=== PATIENT | female | born 1990 | race Caucasian/White ===

== ENCOUNTER 2019-03-14 14:56 | Emergency (ER) | payer MEDICAID, SELFPAY ==
[2019-03-14 14:56] VITALS: BP 145/92; PULSE 105; RESP 20; TEMP 36.5; O2SAT 98; BMI 29.5
--- NOTE | 2019-03-14 15:05 | RAD_ITS ---
STUDY: X-RAY - LEFT HAND, ATTENTION THIRD FINGER REASON FOR EXAM: Female, 29 years old. DOG BITE, MIDDLE FINGER TECHNIQUE: 3 view(s) of the finger were obtained. COMPARISON: None. FINDINGS: Normal metacarpal head. Normal metacarpophalangeal joint. Normal proximal phalanx. Normal middle phalanx. Normal distal phalanx. Normal proximal interphalangeal joint. Normal distal interphalangeal joint. There is soft tissue swelling about the third digit. RAD/Finger(s) Min 2 Views IMPRESSION: No fracture or malalignment. Third digit soft tissue swelling. No radiopaque foreign body. Electronically Signed: Cem Raza MD at 15:34 EDT , Service support ,
[2019-03-14] MEDS: Diphth,Pertuss(Acell),Tet Vac 0.5 ML Vial IM (15:11)
[2019-03-14] MEDS: Bupivacaine Mpf 0.5% 30 ML VIAL INFILT (15:12)
[2019-03-14] MEDS: morphine 8 MG/ML Syringe IM (15:12)
--- NOTE | 2019-03-14 16:17 | ED.DCSUM_ITS ---
- ER Visit Summary Date of Service: 03/14/19 Chief Complaint: Dog bite left History of Present Illness: The patient is a 29 F will complement improved she is right-hand dominant. She reports that she was her dog and was bit on her left middle finger. She complains of a sharp pain that is 10 out of 10 severity. Is worsened by movement and relieved by rest. She does complain of paresthesias distally. She is unsure when her last tetanus shot was. Physical Examination: Vitals: Stable. Afebrile. General: Well-nourished and well-developed. Head: Normocephalic atraumatic. Neck: Supple, no lymphadenopathy. No JVD. Nontender. Cardiovascular: Regular rate and rhythm. No murmurs. Respiratory: No respiratory distress. Clear to auscultation bilaterally. Abdominal: Soft, nontender, nondistended, normal bowel sounds. No guarding, rebound, or peritoneal signs. Back: Nontender. Extremities: 2 cm laceration to the anterior surface of the middle phalanx of her left middle finger. She reports a decreased sensation to light touch and has abnormal two-point discrimination distally. Skin: Normal color, no rash. Neurologic: Alert and oriented ?3. Cranial nerves II through XII are intact. Normal strength and sensation. Psych: Normal affect. Test Results: X-rays negative. Emergency Department Course and Treatment: Patient had her wound anesthetized and repaired. She tolerated this well. She is penicillin allergic and was treated with doxycycline p.o. Treatment Plan: Patient was discussed with Dr. Sorensen and given the paresthesias she asked that the patient be referred to a hand surgeon. She was discussed with Dr. Ila day who will see her in the office in 4 days for a repeat exam. Patient will be discharged with [place] and doxycycline. Return to the emergency department for any worsening symptoms. Disposition: To home in improved and stable condition. Impression: 1. Dog bite left middle finger. 2. Decreased sensation left middle fingertip. 3. Laceration left middle finger, 2 cm, repaired. Procedure note: Wound was cleansed with chlorhexidine soap. Anesthetized with 5 cc of bupivacaine used as a digital block. Copiously irrigated with normal saline. Wound was explored there is no foreign material present. It was closed with 4 simple interrupted 4-0 ethilon sutures. The patient tolerated it well. This note was generated with [employer] dictation software. It may contain incorrect words, spelling, and punctuation that were not noted in review of the chart prior to signing ED Disposition - Plan for ED Patient: Disposition: Home or Assisted Living Instructions: Dog Bite Prescriptions: Doxycycline 100 mg PO BID #20 cap Prescription Printed Hydrocodone Bitart/Apap 5-325 [[place] 5MG-325MG] 1 tab PO Q6H PRN PRN 3 Days #10 tab PRN Reason: Pain Prescription Printed Additional Instructions: Follow up with Dr. Gray in 4 days for a wound check. His number is .
[2019-03-14] MEDS: Doxycycline 100 MG CAPSULE PO (16:36)
== END 2019-03-14 16:53 | disposition home or self-care (01) ==
PROVIDERS: Emergency Provider Emergency Medicine
DX: S61.213A Laceration without foreign body of left middle finger without damage to nail, initial encounter (principal); R20.8 Other disturbances of skin sensation; Z72.0 Tobacco use; W54.0XXA Bitten by dog, initial encounter; Y93.89 Activity, other specified; Y92.009 Unspecified place in unspecified non-institutional (private) residence as the place of occurrence of the external cause; Y99.8 Other external cause status
CPT/HCPCS: 12001; 73140; 90471; 90715; 96372; 99284

== ENCOUNTER 2021-03-22 17:35 | Outpatient (CLI) | payer MEDICAID, SELFPAY ==
[2021-03-22 17:50] VITALS: BMI 38.7
[2021-03-22 17:52] VITALS: BP 123/82; PULSE 79
[2021-03-22 17:54] VITALS: BP 123/82; PULSE 80; TEMP 36.3; O2SAT 100
--- NOTE | 2021-03-22 18:21 | US_ITS ---
HISTORY: growth EXAMINATION: US OB Limited 1 Or More Fetus TECHNIQUE: Transabdominal pelvic ultrasound was performed. Grayscale, spectral waveform, and color flow Doppler evaluation of the adnexa. COMPARISON: None LMP: 08/02/20. Beta-hCG: Unknown. Provided EGA: 33 weeks 1 day. FINDINGS: INTRAUTERINE GESTATION(s): Single. ESTIMATED GESTATIONAL AGE: 31 weeks 4 days. ESTIMATED DUE DATE (MACIE): May 20, 2021. HEART MOTION is 155 bpm. AMNIOTIC FLUID INDEX (GARY): 10.25 cm. ESTIMATED WEIGHT: 1865 g or 4 lbs. 2 oz.. BIOPHYSICAL PROFILE (BPP): not assessed. PRESENTATION: cephalic. PLACENTA: anterior. There is no placenta previa or abruption. CERVIX: The cervix is closed. FREE FLUID: None. US/OB Limited With Biometrics IMPRESSION: Single live intrauterine of 31 weeks 4 days. No acute abnormality. at 0020 Reported and signed by: Tarik Kim MD Electronically Signed: Tarik Kim MD at 0:18 EDT Tel , Service support ,
[2021-03-22 18:48] LABS: Mucous, Urine 0 SEEN /hpf (<or=2+); Red Blood Cells-Urine 0 SEEN /hpf (0-5)
[2021-03-22 18:54] LABS: Absolute Lymphocyte Count 1.93 X10^3/uL (0.83-4.51); Absolute Neutrophil Count 10.2 X10^3/uL (2.0-7.7); Basophil# 0.04 X10^3/uL; Basophil% 0.3 % (0-1); Eosinophil# 0.11 X10^3/uL; Eosinophils% 0.8 % (0-5); Hematocrit 32.5 % (37-47); Hemoglobin 9.9 g/dL (12.0-15.0); Lymphocyte # 1.93 X10^3/ul (0.83-4.51); Lymphocyte % 14.9 % (19-41); Mean Corp Hgb Conc 30.5 g/dL (32-36); Mean Corpuscular Hgb 26.8 pg (27.0-32.0); Mean Corpuscular Volume 87.8 fL (81-99); Mean Platelet Vol. 10.2 fl (6.2-12.0); Monocyte% 4.6 % (0-10); NRBC Flagged by Analyzer 0 % (0-5); Neutrophil # 10.15 X10^3/uL (2.7-7.7); Neutrophil % 78.3 % (47-70); Platelet Count 427 K/mm3 (150-450); RBC Distribution Width CV 13.2 % (11.6-14.6); RBC Distribution Width SD 42.1 fl (35.1-43.9)
[2021-03-22 18:55] LABS: Color, Urine Yellow (Yellow); Glucose, Dipstick Normal (Normal); Ketone-Dipstick Negative (Negative); Leukocyte Esterase-Dipstick Negative /ul (Negative); Nitrite-Dipstick Negative (Negative); Occult Blood-Urine Negative /ul (Negative); Protein-Dipstick Negative (Negative); Urine Bilirubin Dipstick Negative (Negative); Urine Clarity Clear (Clear); Urine Urobilinogen Normal (Normal)
[2021-03-22 19:09] LABS: ALB/GLOB Ratio 0.5 RATIO (0.9-2.4); AST(SGOT) 20 U/L (15-37); Alanine Aminotransfer ALT/SGPT 22 U/L (13-56); Albumin, Serum 2.3 g/dL (3.2-5.0); Alkaline Phosphatase 156 U/L (45-117); Anion Gap 6 (5-15); BUN 5 mg/dL (7-18); BUN/Creat Ratio 10.4 RATIO (10-20); Calcium,Total 8.4 mg/dL (8.5-10.1); Chloride 107 mmol/L (98-107); Creatinine, Serum 0.48 mg/dL (0.55-1.02); EST Glomerular Filtration Rate 159 mL/min (>60); Est Glom Filt Rate - Afr Amer 192 mL/min (>60); Estimated Creatinine Clearance 126.97 ml/min; Globulin 4.7 g/dL (2.2-4.2); Glucose 86 mg/dL (74-106); Potassium 3.5 mmol/L (3.5-5.1); Sodium Level 139 mmol/L (136-145)
[2021-03-22 19:14] LABS: Bacteria RARE /hpf (None Seen); Squamous Epithelial Cells - UA 0-5 SEEN /hpf (5-10); White Blood Cells 0-5 SEEN /hpf (0-5)
[2021-03-22 19:20] LABS: Amphetamine Urine VISTA POSITIVE (<1000 ng/mL); Barbiturate Urine VISTA NEGATIVE (< 200 ng/mL); Benzodiazepine Urine VISTA NEGATIVE (< 200 ng/mL); Cocaine Urine VISTA NEGATIVE (< 300 ng/mL); Ecstacy Urine VISTA NEGATIVE (< 500 ng/mL); Methadone Urine VISTA NEGATIVE (< 300 ng/mL); PCP Urine VISTA NEGATIVE (< 25 ng/mL); THC Urine VISTA POSITIVE (< 50 ng/mL); Vista UDS pH Range 7
[2021-03-22 19:46] VITALS: TEMP 35.8
[2021-03-22 19:47] VITALS: BP 133/89; PULSE 82
[2021-03-22 20:19] LABS: HIV - WCH Non-Reactive (Nonreactive); Hepatitis B Surface Antigen Non-Reactive (Nonreactive); Hepatitis C Antibody Non-Reactive (Nonreactive)
[2021-03-22] MEDS: Mag Hydrox/Al Hydrox/Simeth 30 ML UDC PO (20:26)
[2021-03-22] MEDS: Famotidine 20 MG Tablet PO (21:02)
[2021-03-22 21:21] LABS: Chlamydia Trachomatis by PCR Negative (Negative); Neisserai gonorrhoeae by PCR Negative (Negative); Probe Check PASS; Sample Adequacy Control PASS; Specimen Processing Control PASS
[2021-03-23 08:26] LABS: Rubella IgG Equiv (Nonreactive); Syphilis Antibodies Non-reactive
--- NOTE | 2021-03-23 10:55 | OB.TRI.PN ---
Progress Notes Date of Service: 03/22/21 Progress Note: Patient presents for triage evaluation secondary to epigastric pain. Patient has not had any care. Is 33 weeks by LMP. Dating/growth US ordered. NOB labs and UDS ordered. Cervix closed. Given mylanta with significant relief in pain. Discharged to home in stable condition. FHT: Moderate variability reactive no decelerations category I tracing [place]: No Contractions Assessment and plan: Reactive NST, reassuring maternal and status patient discharged to home to establish care with OB care provider. See problem list details for additional plan information. Laboratory Studies: Laboratory Tests 03/22/21 03/22/21 03/22/21 Range/Units 18:35 18:35 18:35 WBC (4.4-11.0) K/mm3 RBC (4.2-5.4) M/mm3 Hgb (12.0-15.0) g/dL Hct (37-47) % MCV (81-99) fL MCH (27.0-32.0) pg MCHC (32-36) g/dL RDW Std Deviation (35.1-43.9) fl RDW Coeff of Mendoza (11.6-14.6) % Plt Count (150-450) K/mm3 MPV (6.2-12.0) fl Immature Gran % (Auto) (0.0-0.9) % Neut % (Auto) (47-70) % Lymph % (Auto) (19-41) % [place] % (Auto) (0-10) % Eos % (Auto) (0-5) % Baso % (Auto) (0-1) % Absolute Neuts (auto) (2.0-7.7) X10^3/uL Absolute Lymphs (auto) (0.83-4.51) X10^3/uL Nucleated RBC % (0-5) % Sodium 139 (136-145) mmol/L Potassium 3.5 (3.5-5.1) mmol/L Chloride 107 (98-107) mmol/L Carbon Dioxide 26.0 (21.0-32.0) mmol/L Anion Gap 6 (5-15) BUN 5 L (7-18) mg/dL Creatinine 0.48 L (0.55-1.02) mg/dL Estim Creat Clear Calc 126.97 ml/min Est GFR (MDRD) Af Amer 192 (>60) mL/min Est GFR (MDRD) Non-Af 159 (>60) mL/min BUN/Creatinine Ratio 10.4 (10-20) RATIO Glucose 86 (74-106) mg/dL Calcium 8.4 L (8.5-10.1) mg/dL Total Bilirubin 0.20 (0.20-1.00) mg/dL AST 20 (15-37) U/L ALT 22 (13-56) U/L Alkaline Phosphatase 156 H (45-117) U/L Total Protein 7.0 (6.4-8.2) g/dL Albumin 2.3 L (3.2-5.0) g/dL Globulin 4.7 H (2.2-4.2) g/dL Albumin/Globulin Ratio 0.5 L (0.9-2.4) RATIO Urine Color (Yellow) Urine Clarity (Clear) Urine pH (5.0 - 8.0) Ur Specific [place] (1.002-1.030) Urine Protein (Negative) mg/dl Urine Glucose (UA) (Normal) mg/dl Urine Ketones (Negative) mg/dl Urine Occult Blood (Negative) /ul Urine Nitrite (Negative) Urine Bilirubin (Negative) mg/dL Urine Urobilinogen (Normal) mg/dl Ur Leukocyte Esterase (Negative) /ul Urine RBC (0-5) /hpf Urine WBC (0-5) /hpf Ur Squamous Epith Cells (5-10) /hpf Urine Bacteria (None Seen) /hpf Urine Mucus (<or=2+) /hpf Urine Opiates Screen (< 300 ng/mL) Urine Methadone Screen (< 300 ng/mL) Ur Barbiturates Screen (< 200 ng/mL) Ur Phencyclidine Scrn (< 25 ng/mL) Ur Amphetamines Screen (<1000 ng/mL) U Methamphetamin-MDMA (< 500 ng/mL) U Benzodiazepines Scrn (< 200 ng/mL) Urine Cocaine Screen (< 300 ng/mL) U Cannabinoids Screen (< 50 ng/mL) Ur Drug Screen Comment Syphilis Total Ab Chlam trachomat DNA PCR Negative (Negative) Hep Bs Antigen (Nonreactive) Hepatitis C Antibody (Nonreactive) HIV 1&2 Antibody (Nonreactive) N.gonorrhoeae DNA (PCR) Negative (Negative) Rubella IgG Antibody (Nonreactive) Blood Type Antibody Screen Screen Cancelled Baby's Blood Type Cancelled Baby's BRITTANY Cancelled 03/22/21 03/22/21 03/22/21 Range/Units 18:35 18:35 18:35 WBC (4.4-11.0) K/mm3 RBC (4.2-5.4) M/mm3 Hgb (12.0-15.0) g/dL Hct (37-47) % MCV (81-99) fL MCH (27.0-32.0) pg MCHC (32-36) g/dL RDW Std Deviation (35.1-43.9) fl RDW Coeff of Mendoza (11.6-14.6) % Plt Count (150-450) K/mm3 MPV (6.2-12.0) fl Immature Gran % (Auto) (0.0-0.9) % Neut % (Auto) (47-70) % Lymph % (Auto) (19-41) % [place] % (Auto) (0-10) % Eos % (Auto) (0-5) % Baso % (Auto) (0-1) % Absolute Neuts (auto) (2.0-7.7) X10^3/uL Absolute Lymphs (auto) (0.83-4.51) X10^3/uL Nucleated RBC % (0-5) % Sodium (136-145) mmol/L Potassium (3.5-5.1) mmol/L Chloride (98-107) mmol/L Carbon Dioxide (21.0-32.0) mmol/L Anion Gap (5-15) BUN (7-18) mg/dL Creatinine (0.55-1.02) mg/dL Estim Creat Clear Calc ml/min Est GFR (MDRD) Af Amer (>60) mL/min Est GFR (MDRD) Non-Af (>60) mL/min BUN/Creatinine Ratio (10-20) RATIO Glucose (74-106) mg/dL Calcium (8.5-10.1) mg/dL Total Bilirubin (0.20-1.00) mg/dL AST (15-37) U/L ALT (13-56) U/L Alkaline Phosphatase (45-117) U/L Total Protein (6.4-8.2) g/dL Albumin (3.2-5.0) g/dL Globulin (2.2-4.2) g/dL Albumin/Globulin Ratio (0.9-2.4) RATIO Urine Color (Yellow) Urine Clarity (Clear) Urine pH (5.0 - 8.0) Ur Specific [place] (1.002-1.030) Urine Protein (Negative) mg/dl Urine Glucose (UA) (Normal) mg/dl Urine Ketones (Negative) mg/dl Urine Occult Blood (Negative) /ul Urine Nitrite (Negative) Urine Bilirubin (Negative) mg/dL Urine Urobilinogen (Normal) mg/dl Ur Leukocyte Esterase (Negative) /ul Urine RBC (0-5) /hpf Urine WBC (0-5) /hpf Ur Squamous Epith Cells (5-10) /hpf Urine Bacteria (None Seen) /hpf Urine Mucus (<or=2+) /hpf Urine Opiates Screen NEGATIVE (< 300 ng/mL) Urine Methadone Screen NEGATIVE (< 300 ng/mL) Ur Barbiturates Screen NEGATIVE (< 200 ng/mL) Ur Phencyclidine Scrn NEGATIVE (< 25 ng/mL) Ur Amphetamines Screen POSITIVE H (<1000 ng/mL) U Methamphetamin-MDMA NEGATIVE (< 500 ng/mL) U Benzodiazepines Scrn NEGATIVE (< 200 ng/mL) Urine Cocaine Screen NEGATIVE (< 300 ng/mL) U Cannabinoids Screen POSITIVE H (< 50 ng/mL) Ur Drug Screen Comment Syphilis Total Ab Non-reactive Chlam trachomat DNA PCR (Negative) Hep Bs Antigen Non-Reactive (Nonreactive) Hepatitis C Antibody Non-Reactive (Nonreactive) HIV 1&2 Antibody Non-Reactive (Nonreactive) N.gonorrhoeae DNA (PCR) (Negative) Rubella IgG Antibody Equiv (Nonreactive) Blood Type Antibody Screen Screen Baby's Blood Type Baby's BRITTANY 03/22/21 03/22/21 03/22/21 Range/Units 18:35 18:35 18:35 WBC 13.0 H (4.4-11.0) K/mm3 RBC 3.70 L (4.2-5.4) M/mm3 Hgb 9.9 L (12.0-15.0) g/dL Hct 32.5 L (37-47) % MCV 87.8 (81-99) fL MCH 26.8 L (27.0-32.0) pg MCHC 30.5 L (32-36) g/dL RDW Std Deviation 42.1 (35.1-43.9) fl RDW Coeff of [place] 13.2 (11.6-14.6) % Plt Count 427 (150-450) K/mm3 MPV 10.2 (6.2-12.0) fl Immature Gran % (Auto) 1.100 H (0.0-0.9) % Neut % (Auto) 78.3 H (47-70) % Lymph % (Auto) 14.9 L (19-41) % [place] % (Auto) 4.6 (0-10) % Eos % (Auto) 0.8 (0-5) % Baso % (Auto) 0.3 (0-1) % Absolute Neuts (auto) 10.2 H (2.0-7.7) X10^3/uL Absolute Lymphs (auto) 1.93 (0.83-4.51) X10^3/uL Nucleated RBC % 0 (0-5) % Sodium (136-145) mmol/L Potassium (3.5-5.1) mmol/L Chloride (98-107) mmol/L Carbon Dioxide (21.0-32.0) mmol/L Anion Gap (5-15) BUN (7-18) mg/dL Creatinine (0.55-1.02) mg/dL Estim Creat Clear Calc ml/min Est GFR (MDRD) Af Amer (>60) mL/min Est GFR (MDRD) Non-Af (>60) mL/min BUN/Creatinine Ratio (10-20) RATIO Glucose (74-106) mg/dL Calcium (8.5-10.1) mg/dL Total Bilirubin (0.20-1.00) mg/dL AST (15-37) U/L ALT (13-56) U/L Alkaline Phosphatase (45-117) U/L Total Protein (6.4-8.2) g/dL Albumin (3.2-5.0) g/dL Globulin (2.2-4.2) g/dL Albumin/Globulin Ratio (0.9-2.4) RATIO Urine Color Yellow (Yellow) Urine Clarity Clear (Clear) Urine pH 7.0 (5.0 - 8.0) Ur Specific [place] 1.010 (1.002-1.030) Urine Protein Negative (Negative) mg/dl Urine Glucose (UA) Normal (Normal) mg/dl Urine Ketones Negative (Negative) mg/dl Urine Occult Blood Negative (Negative) /ul Urine Nitrite Negative (Negative) Urine Bilirubin Negative (Negative) mg/dL Urine Urobilinogen Normal (Normal) mg/dl Ur Leukocyte Esterase Negative (Negative) /ul Urine RBC 0 SEEN (0-5) /hpf Urine WBC 0-5 SEEN (0-5) /hpf Ur Squamous Epith Cells 0-5 SEEN (5-10) /hpf Urine Bacteria RARE (None Seen) /hpf Urine Mucus 0 SEEN (<or=2+) /hpf Urine Opiates Screen (< 300 ng/mL) Urine Methadone Screen (< 300 ng/mL) Ur Barbiturates Screen (< 200 ng/mL) Ur Phencyclidine Scrn (< 25 ng/mL) Ur Amphetamines Screen (<1000 ng/mL) U Methamphetamin-MDMA (< 500 ng/mL) U Benzodiazepines Scrn (< 200 ng/mL) Urine Cocaine Screen (< 300 ng/mL) U Cannabinoids Screen (< 50 ng/mL) Ur Drug Screen Comment Syphilis Total Ab Chlam trachomat DNA PCR (Negative) Hep Bs Antigen (Nonreactive) Hepatitis C Antibody (Nonreactive) HIV 1&2 Antibody (Nonreactive) N.gonorrhoeae DNA (PCR) (Negative) Rubella IgG Antibody (Nonreactive) Blood Type O NEGATIVE Antibody Screen NEGATIVE Screen Baby's Blood Type Baby's BRITTANY Charges/Coding Procedures Urinary/Genital [id number]: [id number] non-stress test Interp
[2021-03-28 04:07] LABS: Amphetamine Positive (.); AmphetamineGC/MS Conf 712 ng/mL (Cutoff=500); Methamphetamines Positive (.)
[2021-03-28 09:58] LABS: Amphetamine Ur Confirm Positive (.)
== END 2021-03-22 21:23 | disposition home or self-care (01) ==
LOC: WPOUT 17:41 → WP 17:42
PROVIDERS: Referring Provider Obstetrics & Gynecology; Visit Provider Obstetrics & Gynecology
DX: O26.893 Other specified pregnancy related conditions, third trimester (principal); R10.13 Epigastric pain; O09.33 Supervision of pregnancy with insufficient antenatal care, third trimester; Z3A.33 33 weeks gestation of pregnancy
CPT/HCPCS: 36415; 59025; 59050; 76816; 80053; 80307; 81001; 85025; 86703; 86762; 86780; 86803; 86850; 86900; 86901; 87340; 87491; 87591; 90384; 96372; 99218; G0378; J2790

== ENCOUNTER 2021-11-16 10:03 | Emergency (ER) | payer MEDICAID, SELFPAY ==
[2021-11-16 10:03] VITALS: BP 121/93; PULSE 114; RESP 17; TEMP 35.9; O2SAT 99; BMI 34.1
--- NOTE | 2021-11-16 10:50 | EDS_ITS ---
HPI <Dr. Nisa Tran MD - Last Filed: 11/16/21 22:27> History of Present Illness Chief Complaint: Abd Pain <MERCEDEZ DUGGAN - Last Filed: 11/16/21 11:57> History of Present Illness Informant: patient Onset/Context/Timing Onset: Days (3) Context: Sudden Onset Timing: Continuous Quality: Aching Location: Right flank wrapping around to right upper quadrant Maximum Severity: 8/10 Worsened by: Movement and deep inspiration Relieved by: Lying on right side Narrative Narrative: Patient presents secondary to right flank and right upper quadrant pain. Patient states pain started 3 days ago. Patient denies nausea vomiting diarrhea. Patient reports normal bowel movement 3 days ago. Patient reports decreased appetite. Patient states at baseline does not drink water very much. Patient has not tried any ticl-rmn-rytezaa medications, but states she did use meth 2 days ago in an attempt to relieve the pain. Prior similar symptoms: No Recent Illness/Hospitalization: No PFSH <Dr. Nisa Tran MD - Last Filed: 11/16/21 22:27> PFSH Medical History no medical history Home Medications naproxen [Naprosyn] 500 mg PO BID PRN #20 tab 11/16/21 [Rx Last Taken Unknown] sulfamethoxazole-trimethoprim [Bactrim DS] 1 tab PO BID #20 tab 11/16/21 [Rx Last Taken Unknown] Allergy/AdvReac Type Severity Reaction Status Date / Time Penicillins AdvReac Hives Verified 11/16/21 10:03 Family History no significant family his Surgical History no surgical history Social History (Updated 11/16/21 @ 10:56 by MERCEDEZ DUGGAN) Smoking Status: Current every day smoker tobacco type: cigarettes alcohol intake: never substance use type: methamphetamine <MERCEDEZ DUGGAN - Last Filed: 11/16/21 11:57> PFSH no medical history no significant family history no surgical history <MERCEDEZ DUGGAN - Last Filed: 11/16/21 11:57> ROS ED Constitutional Constitutional ED: Reports fever(s) and subjective; Denies chills, sweats or weight loss Eyes Eyes: Denies blurry vision, change in vision or diplopia ENT ENT ED: Denies ear pain, rhinorrhea or sore throat Cardiovascular Cardiovascular: Denies chest pain, palpitations or racing heartbeat Respiratory/Chest Respiratory/Chest: Denies cough, dyspnea, dyspnea on exertion or sputum Gastrointestinal Gastrointestinal: Reports abdominal pain; Denies constipation, diarrhea, melena, nausea or vomiting Genitourinary Genitourinary ED: Reports LMP (females 10-50) Details: Comment: (November 07, 2021); Denies dysuria, hematuria or urinary frequency Musculoskeletal Musculoskeletal: Denies myalgias Integumentary Denies rash Neurologic Neurologic: Denies headache(s) or weakness Psychiatric Psychiatric: Denies depression Endocrine Endocrinology: Denies polydipsia, polyphagia or polyuria EXAM <Dr. Nisa Tran MD - Last Filed: 11/16/21 22:27> Physical Exam Const Vital Signs: 11/16/21 10:03 11/16/21 12:13 Temperature 96.6 F L Temperature Source Temporal Pulse Rate 114 H 92 Respiratory Rate 17 18 Blood Pressure 121/93 H 114/68 Blood Pressure Mean 102 Pulse Ox 99 97 Oxygen Delivery Method Room Air <MERCEDEZ DUGGAN - Last Filed: 11/16/21 11:57> Physical Exam Const Vital Signs: 11/16/21 10:03 11/16/21 12:13 Temperature 96.6 F L Temperature Source Temporal Pulse Rate 114 H 92 Respiratory Rate 17 18 Blood Pressure 121/93 H 114/68 Blood Pressure Mean 102 Pulse Ox 99 97 Oxygen Delivery Method Room Air Positive well nourished and well developed General Appearance ED: well developed HEENT Reports dry mucous membranes Negative for trauma or tenderness Mouth ED: Yes dry mucous membranes Mouth: dry mucous membranes Eyes PERRL and EOMs intact bilaterally Neck no lymphadenopathy and supple Chest Wall inspection of chest normal and palpation of chest normal Resp normal respiratory effort and clear to auscultation bilaterally Cardio regular rate, regular rhythm and no murmurs GI non-distended Auscultation: hyperactive bowel sounds Palpation: soft and tender LUQ and RUQ; Negative for splenomegaly Back/Spine General Back: CVA tenderness right Extremity normal to inspection General Extremety ED: Negative for edema General Extremity: Negative for edema Neuro oriented x3 and CN's II-XII intact bilaterally Sensorium / Orientation: alert Motor Exam: strength 5/5 throughout Psych mental status grossly normal Skin no rashes or lesions noted MDM <Dr. Nisa Tran MD - Last Filed: 11/16/21 22:27> [facility] Lab Data Labs: Laboratory Results - last 24 hr 11/16/21 11/16/21 11/16/21 10:50 10:50 10:50 WBC 10.2 RBC 4.56 Hgb 11.6 L Hct 36.5 L MCV 80.0 L MCH 25.4 L MCHC 31.8 L RDW Std Deviation 45.9 H RDW Coeff of Mendoza 15.8 H Plt Count 303 MPV 10.3 Immature Gran % (Auto) 0.600 Neut % (Auto) 64.9 Lymph % (Auto) 24.4 [place] % (Auto) 7.1 Eos % (Auto) 2.5 Baso % (Auto) 0.5 Absolute Neuts (auto) 6.6 Absolute Lymphs (auto) 2.49 Nucleated RBC % 0 Sodium 136 Potassium 3.2 L Chloride 103 Carbon Dioxide 27.0 Anion Gap 6 BUN 9 Creatinine 0.85 Estim Creat Clear Calc 71.70 Est GFR (MDRD) Af Amer 100 Est GFR (MDRD) Non-Af 82 BUN/Creatinine Ratio 10.6 Glucose 104 Calcium 8.9 Total Bilirubin 0.50 Direct Bilirubin 0.12 AST 35 ALT 54 Alkaline Phosphatase 198 H Total Protein 8.4 H Albumin 3.3 Globulin 5.1 H Serum , Qual NEGATIVE Urine Color Urine Clarity Urine pH Ur Specific [place] Urine Protein Urine Glucose (UA) Urine Ketones Urine Occult Blood Urine Nitrite Urine Bilirubin Urine Urobilinogen Ur Leukocyte Esterase Urine RBC Urine WBC Ur Squamous Epith Cells Urine Bacteria Urine Mucus 11/16/21 10:50 WBC RBC Hgb Hct MCV MCH MCHC RDW Std Deviation RDW Coeff of [place]endo[place] Plt Count MPV Immature Gran % (Auto) Neut % (Auto) Lymph % (Auto) [place] % (Auto) Eos % (Auto) Baso % (Auto) Absolute Neuts (auto) Absolute Lymphs (auto) Nucleated RBC % Sodium Potassium Chloride Carbon Dioxide Anion Gap BUN Creatinine Estim Creat Clear Calc Est GFR (MDRD) Af Amer Est GFR (MDRD) Non-Af BUN/Creatinine Ratio Glucose Calcium Total Bilirubin Direct Bilirubin AST ALT Alkaline Phosphatase Total Protein Albumin Globulin Serum , Qual Urine Color Yellow Urine Clarity Sl. Cloudy Urine pH 6.0 Ur Specific [place] 1.015 Urine Protein 30 H Urine Glucose (UA) Normal Urine Ketones 5 H Urine Occult Blood 25 H Urine Nitrite Positive H Urine Bilirubin Negative Urine Urobilinogen Normal Ur Leukocyte Esterase 500 H Urine RBC 0-5 SEEN Urine WBC 25-50 SEEN Ur Squamous Epith Cells 5-10 SEEN Urine Bacteria 2+ Urine Mucus 0 SEEN Treatment and Re-Evaluation Narrative: Patient seen and evaluated with [employer]TING [employer]ERK student. I personally interviewed and examined the patient. I was involved in all aspects of patient's orders, interpretation of results, and treatment. Patient presents with 3-day history of right upper quadrant and right flank pain. She denies nausea or vomiting but does report decreased appetite. No fever or chills. No urinary symptoms. Patient sitting upright in bed no acute distress. Head neck examination unremarkable. Heart is regular rate and rhythm. Lung sounds are clear. Abdomen is soft with tenderness across the upper abdomen. No guarding or rebound. Mild right CVA tenderness. Neuro exam unremarkable. Lab work reveals normal white count at 10.2. Chemistry studies unremarkable other than elevated alk phos. Urinalysis reveals positive nitrites with 10-25 white cells and 2+ bacteria. Patient symptoms are consistent with pyelonephritis. She will be treated with a 10-day course of antibiotics. Return instructions provided. <MERCEDEZ DUGGAN - Last Filed: 11/16/21 11:57> [facility] MDM Narrative Medical decision making narrative: CBC, BMP, liver profile, serum , and urinalysis obtained. Patient given Toradol for pain and 1 L normal saline bolus. Lab Data Attestation: I reviewed the patient's lab results. Labs: Laboratory Results - last 24 hr 11/16/21 11/16/21 11/16/21 10:50 10:50 10:50 WBC 10.2 RBC 4.56 Hgb 11.6 L Hct 36.5 L MCV 80.0 L MCH 25.4 L MCHC 31.8 L RDW Std Deviation 45.9 H RDW Coeff of Mendoza 15.8 H Plt Count 303 MPV 10.3 Immature Gran % (Auto) 0.600 Neut % (Auto) 64.9 Lymph % (Auto) 24.4 [place] % (Auto) 7.1 Eos % (Auto) 2.5 Baso % (Auto) 0.5 Absolute Neuts (auto) 6.6 Absolute Lymphs (auto) 2.49 Nucleated RBC % 0 Sodium 136 Potassium 3.2 L Chloride 103 Carbon Dioxide 27.0 Anion Gap 6 BUN 9 Creatinine 0.85 Estim Creat Clear Calc 71.70 Est GFR (MDRD) Af Amer 100 Est GFR (MDRD) Non-Af 82 BUN/Creatinine Ratio 10.6 Glucose 104 Calcium 8.9 Total Bilirubin 0.50 Direct Bilirubin 0.12 AST 35 ALT 54 Alkaline Phosphatase 198 H Total Protein 8.4 H Albumin 3.3 Globulin 5.1 H Serum , Qual NEGATIVE Urine Color Urine Clarity Urine pH Ur Specific [place] Urine Protein Urine Glucose (UA) Urine Ketones Urine Occult Blood Urine Nitrite Urine Bilirubin Urine Urobilinogen Ur Leukocyte Esterase Urine RBC Urine WBC Ur Squamous Epith Cells Urine Bacteria Urine Mucus 11/16/21 10:50 WBC RBC Hgb Hct MCV MCH MCHC RDW Std Deviation RDW Coeff of Mendoza Plt Count MPV Immature Gran % (Auto) Neut % (Auto) Lymph % (Auto) [place] % (Auto) Eos % (Auto) Baso % (Auto) Absolute Neuts (auto) Absolute Lymphs (auto) Nucleated RBC % Sodium Potassium Chloride Carbon Dioxide Anion Gap BUN Creatinine Estim Creat Clear Calc Est GFR (MDRD) Af Amer Est GFR (MDRD) Non-Af BUN/Creatinine Ratio Glucose Calcium Total Bilirubin Direct Bilirubin AST ALT Alkaline Phosphatase Total Protein Albumin Globulin Serum , Qual Urine Color Yellow Urine Clarity Sl. Cloudy Urine pH 6.0 Ur Specific [place] 1.015 Urine Protein 30 H Urine Glucose (UA) Normal Urine Ketones 5 H Urine Occult Blood 25 H Urine Nitrite Positive H Urine Bilirubin Negative Urine Urobilinogen Normal Ur Leukocyte Esterase 500 H Urine RBC 0-5 SEEN Urine WBC 25-50 SEEN Ur Squamous Epith Cells 5-10 SEEN Urine Bacteria 2+ Urine Mucus 0 SEEN Treatment and Re-Evaluation Narrative: Patient blood work and urinalysis reviewed. Blood work unremarkable. However, urinalysis shows a cloudy urine significant for occult blood, positive nitrites, leukocyte esterase with 2+ bacteria. On reevaluation, patient reports decrease in pain and appears more comfortable. Patient verbalizes understanding. Patient will be treated with a 10-day course of Bactrim and naproxen as needed. Patient encouraged to increase fluids and take antibiotic as directed. Home care reviewed with patient as well as symptoms with which to return to ED. Discharge Plan Triage Chief Complaint: Abd Pain ED Provider: Nisa Tran Dx/Rx/DC Orders Clinical Impression: Pyelonephritis Instructions: ED Pyelonephritis, Female (Adult) Prescriptions: New naproxen [Naprosyn] 500 mg tablet 500 mg PO BID PRN (Reason: pain) Qty: 20 RF: 0 sulfamethoxazole-trimethoprim [Bactrim DS] 800-160 mg tablet 1 tab PO BID Qty: 20 RF: 0 Primary Care Provider: Care Physician,No Primary Referrals: Jessica Gallegos MD [STAFF PHYSICIAN] - 1 Week (Follow-up in 7 to 10 days.) Care Physician,No Primary [Primary Care Provider] - Disposition Disposition: Home, Self Care Discharge Date/Time: 11/16/21 12:14
[2021-11-16] MEDS: 0.9% Normal Saline 1,000 ML 1000 ML IV (10:55)
[2021-11-16] MEDS: Ketorolac 30 MG/ML Syringe IV (10:55)
[2021-11-16 11:01] LABS: Mucous, Urine 0 SEEN /hpf (<or=2+)
[2021-11-16 11:03] LABS: Color, Urine Yellow (Yellow); Glucose, Dipstick Normal (Normal); Ketone-Dipstick 5 mg/dl (Negative); Leukocyte Esterase-Dipstick 500 /ul (Negative); Nitrite-Dipstick Positive (Negative); Occult Blood-Urine 25 /ul (Negative); Protein-Dipstick 30 mg/dl (Negative); Specific Gravity, Urine 1.015 (1.002-1.030); Urine Bilirubin Dipstick Negative (Negative); Urine Clarity Sl. Cloudy (Clear); Urine Urobilinogen Normal (Normal)
[2021-11-16 11:05] LABS: Absolute Lymphocyte Count 2.49 X10^3/uL (0.83-4.51); Absolute Neutrophil Count 6.6 X10^3/uL (2.0-7.7); Basophil# 0.05 X10^3/uL; Basophil% 0.5 % (0-1); Eosinophil# 0.26 X10^3/uL; Eosinophils% 2.5 % (0-5); Hematocrit 36.5 % (37-47); Hemoglobin 11.6 g/dL (12.0-15.0); Lymphocyte # 2.49 X10^3/ul (0.83-4.51); Lymphocyte % 24.4 % (19-41); Mean Corp Hgb Conc 31.8 g/dL (32-36); Mean Corpuscular Hgb 25.4 pg (27.0-32.0); Mean Platelet Vol. 10.3 fl (6.2-12.0); Monocyte# 0.72 X10^3/uL; Monocyte% 7.1 % (0-10); NRBC Flagged by Analyzer 0 % (0-5); Neutrophil # 6.63 X10^3/uL (2.7-7.7); Neutrophil % 64.9 % (47-70); Platelet Count 303 K/mm3 (150-450); RBC Distribution Width CV 15.8 % (11.6-14.6); RBC Distribution Width SD 45.9 fl (35.1-43.9); Red Blood Count 4.56 M/mm3 (4.2-5.4); White Blood Count 10.2 K/mm3 (4.4-11.0)
[2021-11-16 11:19] LABS: Internal QC Validated? YES +Cl - CLEAR BKGD; Pregnancy, Serum, hCG Quali. NEGATIVE Negative
[2021-11-16 11:20] LABS: Bacteria 2+ /hpf (None Seen); Red Blood Cells-Urine 0-5 SEEN /hpf (0-5); Squamous Epithelial Cells - UA 5-10 SEEN /hpf (5-10); White Blood Cells 25-50 SEEN /hpf (0-5)
[2021-11-16 11:24] LABS: AST(SGOT) 35 U/L (15-37); Alanine Aminotransfer ALT/SGPT 54 U/L (13-56); Albumin, Serum 3.3 g/dL (3.2-5.0); Alkaline Phosphatase 198 U/L (45-117); Anion Gap 6 (5-15); BUN 9 mg/dL (7-18); BUN/Creat Ratio 10.6 RATIO (10-20); Bilirubin, Direct 0.12 mg/dL (0.00-0.30); Calcium,Total 8.9 mg/dL (8.5-10.1); Chloride 103 mmol/L (98-107); Creatinine, Serum 0.85 mg/dL (0.55-1.02); EST Glomerular Filtration Rate 82 mL/min (>60); Est Glom Filt Rate - Afr Amer 100 mL/min (>60); Globulin 5.1 g/dL (2.2-4.2); Glucose 104 mg/dL (74-106); Potassium 3.2 mmol/L (3.5-5.1); Protein, Total 8.4 g/dL (6.4-8.2); Sodium Level 136 mmol/L (136-145)
[2021-11-16] MEDS: Smz/Tmp Ds Tablet 1 TABLET PO (12:09)
[2021-11-16 12:13] VITALS: BP 114/68; PULSE 92; RESP 18; O2SAT 97
== END 2021-11-16 12:14 | disposition home or self-care (01) ==
PROVIDERS: Emergency Provider Emergency Medicine; Visit Provider Emergency Medicine
DX: N12 Tubulo-interstitial nephritis, not specified as acute or chronic (principal); F17.210 Nicotine dependence, cigarettes, uncomplicated
CPT/HCPCS: 80048; 80076; 81001; 84703; 85025; 96361; 96374; 99284; J7030; A4216

== ENCOUNTER 2023-01-27 19:01 | Emergency (ER) | payer MEDICAID, SELFPAY ==
[2023-01-27 19:02] VITALS: BP 134/98; PULSE 101; RESP 17; TEMP 36.2; O2SAT 99; BMI 33.5
[2023-01-27] MEDS: Tetracaine 0.5% Ophthalmic Bottle 1 DRP RIGHT EYE (19:25)
[2023-01-27] MEDS: Fluorescein 1 MG STRIP 1 STRIP RIGHT EYE (19:25)
--- NOTE | 2023-01-27 19:59 | EX.ED.VIS.EY ---
HPI History of Present Illness Chief Complaint: Eye Problem Detail of Chief Complaint: Left eye pain Informant: patient Narrative Narrative: Patient presents with left eye pain that started yesterday. He she denies injury or trauma. She denies foreign body sensation. She complains of photophobia. She complains of tearing. She has pain when she tries to open her eye. Patient does wear contacts but states that she took them out when the pain started. PFSH PFSH Medical History no medical history Home Medications oxycodone-acetaminophen 5 mg-325 mg tablet (Percocet) 1 tab PO Q8H PRN pain 2 days #10 tabs 01/27/23 [Rx Last Taken Unknown] Allergy/AdvReac Type Severity Reaction Status Date / Time Penicillins AdvReac Hives Verified 01/27/23 19:03 Surgical History no surgical history Social History (Updated 11/16/21 @ 10:56 by MERCEDEZ DUGGAN) Smoking Status: Current every day smoker tobacco type: cigarettes alcohol intake: never substance use type: methamphetamine ROS ROS ED Review of Systems ROS Unobtainable: other Constitutional Constitutional ED: Reports lethargy; Denies chills, fever(s), sweats or weight loss Eyes Eyes: Reports other Details: Left eye pain ; Denies blurry vision, change in vision or diplopia ENT ENT ED: Denies rhinorrhea or sore throat Cardiovascular Cardiovascular: Denies chest pain or racing heartbeat Respiratory/Chest Respiratory/Chest: Denies cough, dyspnea, dyspnea on exertion or sputum Gastrointestinal Gastrointestinal: Denies abdominal pain, diarrhea, nausea or vomiting Genitourinary Genitourinary ED: Denies dysuria, hematuria or urinary frequency Musculoskeletal Musculoskeletal: Denies arthralgias, back pain, myalgias or neck pain Integumentary Denies abscess, Abrasions or rash Neurologic Neurologic: Denies headache(s) or weakness Psychiatric Psychiatric: Denies anxiety, depression or suicidal thoughts Endocrine Endocrinology: Denies polydipsia, polyphagia or polyuria Hematologic/Lymphatic Hematologic/Lymphatic: Denies easy bleeding, easy bruising or lymphadenopathy Allergic/Immunologic Allergic/Immunologic ED: Denies mouth swelling, tongue swelling or urticaria EXAM Physical Exam Const Vital Signs: 01/27/23 19:02 Temperature 97.2 F L Temperature Source Temporal Pulse Rate 101 H Respiratory Rate 17 Blood Pressure 134/98 H Blood Pressure Mean 110 Pulse Ox 99 Oxygen Delivery Method Room Air Positive well nourished and well developed General Appearance ED: well developed and NAD HEENT Reports TM's clear and moist mucous membranes HEENT Narrative: Patient does not tolerate opening her eye initially. After instilling tetracaine into her left eye she was able to open the eye. There are some faint diffuse conjunctival erythema. Pupils equal reactive to light bilaterally. Extraocular muscle movement is normal normocephalic and atraumatic; Negative for trauma or tenderness Tympanic Membrane ED: Yes TM's clear Eyes PERRL and EOMs intact bilaterally General Eye ED: Negative for pale conjunctiva or scleral icterus Neck no lymphadenopathy, supple and no JVD General: Negative for tenderness Chest Wall inspection of chest normal and palpation of chest normal Chest: Negative for tenderness Resp normal respiratory effort and clear to auscultation bilaterally Effort and Inspection: Negative for respiratory distress or pain with movement Auscultation: Negative for rhonchi, wheezes or diminished lung sounds Cardio regular rate, regular rhythm, S1 normal heart sound, S2 normal heart sound and no murmurs Peripheral Pulses: pulses 2+ throughout GI normal to inspection, nondistended, normoactive bowel sounds, soft to palpation, non-tender, non-distended and no masses Back/Spine no CVA tenderness and no thoracic nor lumbar tenderness Extremity normal to inspection General Extremety ED: Negative for edema General Extremity: Negative for edema Neuro oriented x3, CN's II-XII intact bilaterally, no sensory deficits noted and gait normal Sensorium / Orientation: awake, alert, oriented to person, oriented to place and oriented to time Motor Exam: strength 5/5 throughout and strength abnormal Psych mental status grossly normal Skin no rashes or lesions noted and no wounds MDM MDM MDM Narrative Medical decision making narrative: Eyelids were everted and there was no foreign bodies noted. Eye was stained with tetracaine and it was noted that she had a circular corneal abrasion approximately 6 o'clock position on the cornea. Patient had gentamicin ophthalmic ointment placed in the eye and she had an eye patch placed for comfort. Prior to eye patch placement I did perform tonometry and her eye pressure in the left eye was 26 patient has a corneal abrasion. I will give her a prescription for a few Percocet for pain. She is referred to ophthalmology for follow-up tomorrow. Discharge Plan Triage Chief Complaint: Eye Problem ED Provider: Rigoberto Mane Dx/Rx/DC Orders Clinical Impression: Abrasion, corneal Instructions: ED Corneal Abrasion Prescriptions: New oxycodone-acetaminophen [Percocet] 5-325 mg tablet 1 tab PO Q8H PRN (Reason: pain) 2 Days Qty: 10 0RF Primary Care Provider: Care Physician,No Primary Referrals: Raymon Hawkins MD [Med Staff - Active Staff] - 1 Day for another exam Care Physician,No Primary [Primary Care Provider] - Disposition Disposition: Home, Self Care
[2023-01-27] MEDS: Erythromycin Base 1 OPTH.TUBE 1 APPLIC LEFT EYE (20:10)
== END 2023-01-27 20:11 | disposition home or self-care (01) ==
PROVIDERS: Emergency Provider Emergency Medicine; Visit Provider Emergency Medicine
DX: S05.02XA Injury of conjunctiva and corneal abrasion without foreign body, left eye, initial encounter (principal); F17.210 Nicotine dependence, cigarettes, uncomplicated
CPT/HCPCS: 99282